=== PATIENT | male | born 1980 ===

== ENCOUNTER 2022-02-06 15:31 | Emergency (ER) | payer BC ==
[~2022-02-06] VITALS: Ht 185.4 cm; Wt 77.7 kg
[2022-02-06] MEDS ORDERED: KETOROLAC TROMETHAMINE 15 MG INJ IVP ONE (16:15)
[2022-02-06] MEDS ORDERED: IV NORMAL SALINE 1000 ML BAG IV ONE (16:15)
[2022-02-06 16:28] LABS: HEMATOCRIT 43.6 % (36.7-47.1); MEAN CORPUSCULAR HEMOGLOBIN 30.1 uug (23.8-33.4); MEAN CORPUSCULAR VOLUME 87.2 fL (73.0-96.2); PLATELET COUNT (AUTO) 345 K/uL (152-348)
[2022-02-06] MEDS ORDERED: KETOROLAC TROMETHAMINE 15 MG INJ ONE (16:31)
[2022-02-06 16:35] LABS: POTASSIUM 4.2 mmol/L (3.5-5.1)
--- NOTE | 2022-02-06 16:47 | NUR ---
MEDICATED FOR PAIN PER MD ORDERS.
[2022-02-06] MEDS ORDERED: CEPH500C2 PO (17:41)
[2022-02-06] MEDS ORDERED: IBUP-1955 PO (17:41)
--- NOTE | 2022-02-06 18:14 | NUR ---
Patient discharged to home in stable condition. Written and verbal after care instructions given. Patient verbalizes understanding of instructions. Stressed follow up or return to ER for worsening s/s.pt walks in steady gait.
[2022-02-06 18:15] VITALS: BP 111/77
== END 2022-02-06 18:15 | disposition home or self-care (01) ==
LOC: ER 15:46
DX: I82.611 Acute embolism and thrombosis of superficial veins of right upper extremity (principal); L03.114 Cellulitis of left upper limb
CPT/HCPCS: 36415; 80048; 85025; 93971; 96361; 96374; 99284; J1885; J7040; A4663

== ENCOUNTER 2022-03-01 14:57 | Emergency (ER) | payer BC ==
[~2022-03-01] VITALS: Ht 182.9 cm; Wt 80.7 kg
[~2022-03-01 14:57] MED LIST: CEPH500C2 PO; IBUP-1955 PO
--- NOTE | 2022-03-01 15:00 | NUR ---
MD at bedside, medical screening exam in progress.
--- NOTE | 2022-03-01 16:20 | NUR ---
UA sent to lab.
--- NOTE | 2022-03-01 19:19 | NUR ---
Patient discharged to home in stable condition. Written and verbal after care instructions given. Patient verbalizes understanding of instructions. Stressed follow up or return to ER for worsening s/s. pt ambulated with steady gait. no SOB. no chest pain. AOx4
[2022-03-01 19:20] VITALS: BP 113/19
== END 2022-03-01 19:21 | disposition home or self-care (01) ==
LOC: ER 14:57
DX: I80.8 Phlebitis and thrombophlebitis of other sites (principal)
CPT/HCPCS: A4663

== ENCOUNTER 2022-11-22 22:47 | Emergency (ER) | payer BC ==
[~2022-11-22] VITALS: Ht 182.9 cm; Wt 80.7 kg
--- NOTE | 2022-11-22 23:00 | NUR ---
PT ARRIVED, AMB WITH C/O CP 3/10 WITH NO N/V AND VSS.
[2022-11-22] MEDS ORDERED: ASPIRIN 81 MG TAB.CHEW PO ONE (23:30)
--- NOTE | 2022-11-22 23:33 | NUR ---
LAB AT BEDSIDE DRAWING LABS.
[2022-11-22] MEDS ORDERED: ASPIRIN 81 MG TAB.CHEW ONE (23:36)
[2022-11-22 23:43] LABS: HEMATOCRIT 42.6 % (36.7-47.1); MEAN CORPUSCULAR VOLUME 87.5 fL (73.0-96.2); PLATELET COUNT (AUTO) 392 K/uL (152-348)
[2022-11-22 23:59] LABS: CARBON DIOXIDE 27 mmol/L (21-32); CHLORIDE 102 mmol/L (98-107); CREATININE 0.6 mg/dL (0.6-1.3); GLUCOSE 92 mg/dL (74-106); UREA NITROGEN, BLOOD 15 mg/dL (7-18)
[2022-11-23 00:12] LABS: ALANINE AMINOTRANSFERASE 31 U/L (16-63); ALKALINE PHOSPHATASE 81 U/L (50-136); ASPARTATE AMINOTRANSFERASE 13 U/L (15-37); BILIRUBIN,DIRECT 0.1 mg/dL (0.0-0.2); BILIRUBIN,TOTAL 0.6 mg/dL (0.2-1.0); TOTAL PROTEIN, SERUM 7.2 g/dL (6.4-8.2)
--- NOTE | 2022-11-23 00:30 | NUR ---
Patient discharged to home in stable condition. Written and verbal after care instructions given. Patient verbalizes understanding of instructions. Stressed follow up or return to ER for worsening s/s.
[2022-11-23 00:42] VITALS: BP 138/92
== END 2022-11-23 00:30 | disposition home or self-care (01) ==
LOC: ER 22:47
DX: R07.9 Chest pain, unspecified (principal); Z72.0 Tobacco use
CPT/HCPCS: 36415; 71045; 84484; 85025; 93005